=== PATIENT | male | born 1960 | race Caucasian/White ===

== ENCOUNTER → 2016-06-23 | Outpatient (CLI) | payer OTHER ==
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
== END | disposition home or self-care (01) ==
LOC: ADTC.GI 12:52
DX: F10.20 Alcohol dependence, uncomplicated (principal)

== ENCOUNTER → 2016-07-04 | Outpatient (CLI) | payer OTHER | END | disposition home or self-care (01) | LOC: PTH.S 07-03 15:30 | DX: E11.9 Type 2 diabetes mellitus without complications (principal) ==

== ENCOUNTER → 2016-09-11 | Outpatient (CLI) | payer OTHER | END | disposition home or self-care (01) | LOC: PTH.S 09-03 15:30 | DX: E11.9 Type 2 diabetes mellitus without complications (principal) ==

== ENCOUNTER → 2016-10-10 | Outpatient (CLI) | payer OTHER | END | disposition home or self-care (01) | LOC: PTH.S 10-04 15:30 | DX: E11.9 Type 2 diabetes mellitus without complications (principal) ==